=== PATIENT | female | born 1940 | race Caucasian/White ===

== ENCOUNTER → 2022-07-13 09:49 | Outpatient (BNVA) | payer MEDICARE, OTHER, SELFPAY | PROVIDERS: Visit Provider Nurse Practitioner Family | DX: I10 Essential (primary) hypertension (principal) | CPT/HCPCS: 80053; 80061; 84443; 85025 ==

== ENCOUNTER → 2023-07-27 13:33 | Outpatient (BNVA) | payer MEDICARE, OTHER, SELFPAY | PROVIDERS: PCP Family Medicine; Visit Provider Nurse Practitioner Family | DX: R30.0 Dysuria (principal); N39.0 Urinary tract infection, site not specified; R31.9 Hematuria, unspecified; R06.2 Wheezing | CPT/HCPCS: 81003; 87077; 87086; 87184 ==

== ENCOUNTER → 2023-08-03 14:55 | Outpatient (BNVA) | payer MEDICARE, OTHER, SELFPAY | PROVIDERS: PCP Family Medicine; Visit Provider Nurse Practitioner Family | DX: N23 Unspecified renal colic (principal); N39.0 Urinary tract infection, site not specified; R31.9 Hematuria, unspecified | CPT/HCPCS: 81003; 87077; 87086; 87184 ==